=== PATIENT | female | born 1950 | race Caucasian/White ===

== ENCOUNTER 2017-10-08 15:15 | Outpatient (CLI) | payer MEDICARE, OTHER | END 2017-10-08 15:16 | disposition home or self-care (01) | LOC: BICMAMMO 15:15 | PROVIDERS: ATTEND Obstetrics & Gynecology | DX: Z12.31 Encounter for screening mammogram for malignant neoplasm of breast (principal) | CPT/HCPCS: 77063; 77067 ==

== ENCOUNTER 2018-10-21 08:04 | Outpatient (CLI) | payer MEDICARE | END 2018-10-21 08:05 | disposition home or self-care (01) | LOC: BICMAMMO 08:04 | PROVIDERS: ATTEND Obstetrics & Gynecology | DX: Z12.31 Encounter for screening mammogram for malignant neoplasm of breast (principal) | CPT/HCPCS: 77063; 77067 ==

== ENCOUNTER 2019-10-22 09:58 | Outpatient (CLI) | payer MEDICARE ==
--- NOTE | 2019-10-22 12:12 | MMO ---
Bilateral MAMMO Bilat Screen [facility]. CLINICAL HISTORY: Patient is 69 years old and is seen for screening. The patient has no family history of breast cancer. The patient has no personal history of cancer. VIEWS: The views performed were: bilateral craniocaudal with tomosynthesis and bilateral mediolateral oblique with tomosynthesis. FILMS COMPARED: The present examination has been compared to prior imaging studies performed at [facility] on 10/08/2017 and 10/21/2018, and at [facility] on 01/11/2015 and 01/27/2016. This study has been interpreted with the assistance of computer-aided detection. MAMMOGRAM FINDINGS: There are scattered fibroglandular densities. There are no suspicious masses, suspicious calcifications, or new areas of architectural distortion. IMPRESSION: THERE IS NO MAMMOGRAPHIC EVIDENCE OF MALIGNANCY. A ROUTINE FOLLOW-UP MAMMOGRAM IN 1 YEAR IS RECOMMENDED. THE RESULTS OF THIS EXAM WERE SENT TO THE PATIENT. ACR BI-RADS Category 1 - Negative MAMMOGRAPHY NOTE: 1. A negative mammogram report should not delay a biopsy if a dominant of clinically suspicious mass is present. 2. Approximately 10% to 15% of breast cancers are not detected by mammography. 3. Adenosis and dense breasts may obscure an underlying neoplasm. Reported by: VIKAS ALICEA MD Electonically Signed: [id number]
== END 2019-10-22 09:59 | disposition home or self-care (01) ==
LOC: BICMAMMO 09:58
PROVIDERS: ATTEND Obstetrics & Gynecology
DX: Z12.31 Encounter for screening mammogram for malignant neoplasm of breast (principal)
CPT/HCPCS: 77063; 77067

== ENCOUNTER 2022-05-11 08:40 | Outpatient (CLI) | payer MEDICARE | END 2022-05-11 08:41 | disposition home or self-care (01) | LOC: BICMAMMO 08:40 | PROVIDERS: ATTEND Obstetrics & Gynecology | DX: Z13.820 Encounter for screening for osteoporosis (principal); M81.0 Age-related osteoporosis without current pathological fracture | CPT/HCPCS: 77080 ==

== ENCOUNTER 2022-09-19 08:28 | Outpatient (CLI) | payer MEDICARE | END 2022-09-19 08:29 | disposition home or self-care (01) | LOC: RAD 08:28 | PROVIDERS: ATTEND Internal Medicine Critical Care Medicine | DX: R06.00 Dyspnea, unspecified (principal) | CPT/HCPCS: 71046 ==

== ENCOUNTER 2023-09-30 08:36 | Outpatient (CLI) | payer MEDICARE | END 2023-09-30 08:37 | disposition home or self-care (01) | LOC: RAD 08:36 | PROVIDERS: ATTEND Internal Medicine Critical Care Medicine | DX: R06.00 Dyspnea, unspecified (principal) | CPT/HCPCS: 71046 ==

== ENCOUNTER 2024-08-03 13:39 | Outpatient (CLI) | payer MEDICARE ==
[2024-08-03 15:26] LABS: #Basophils 0.03 10x3/uL (0.0-0.2); %Basophils 0.4 % (0.0-1.0); %Eosinophils 1.3 % (0.0-10.0); %Lymphocytes 13.7 % (21.0-51.0); %Monocytes 8.1 % (0.0-10.0); %Neutrophils 76.4 % (42.0-75.0); Hematocrit 41.8 % (36.0-47.0); Mean Corpuscular HGB CONC 33.5 g/dL (32.0-36.0); Mean Corpuscular Hemoglobin 32.2 pg (27.0-31.0); Mean Corpuscular Volume 96.1 fL (78.0-98.0); Mean Platelet Volume 9.8 fL (7.4-10.4); Platelet Count 366 10x3/uL (130-400); RBC Distribution Width 15.6 % (11.5-14.5); Red Blood Cell (RBC) Count 4.35 mill/uL (4.20-5.40)
[2024-08-03 15:44] LABS: Anion Gap 11 mmol/L (10-20); BUN (Urea Nitrogen) 9 mg/dL (9.8-20.1); Calc. Creatinine Clearance 0 mL/min (70-130); Calcium 9.3 mg/dL (7.8-10.44); Carbon Dioxide 28 mmol/L (23-31); Chloride 100 mmol/L (98-107); Estimated GFR 94; Glucose 84 mg/dL (83-110); Potassium 3.8 mmol/L (3.5-5.1); Sodium 135 mmol/L (136-145)
== END 2024-08-03 13:40 | disposition home or self-care (01) ==
LOC: LABBT 13:39
PROVIDERS: ATTEND Orthopaedic Surgery
DX: Z01.818 Encounter for other preprocedural examination (principal); S52.501D Unspecified fracture of the lower end of right radius, subsequent encounter for closed fracture with routine healing
CPT/HCPCS: 80048; 85025; 93005; 93010

== ENCOUNTER 2024-08-06 05:52 | Day surgery (SDC) | payer MEDICARE ==
[2024-08-03 14:14] VITALS: BMI 20.5
[2024-08-06] MEDS ORDERED: EPINEPHrine 1 MG/ML VIAL ONE (06:28)
[2024-08-06] MEDS ORDERED: Midazolam HCl 2 mg/2 ml Vial ONE (06:29)
[2024-08-06] MEDS ORDERED: fentaNYL 50 mcg/mL 1 mL Vial ONE (06:29)
[2024-08-06] MEDS ORDERED: Bupivacaine PF 0.5% 30 ML VIAL ONE (06:29)
[2024-08-06] MEDS ORDERED: Lidocaine 1% (PF) 30 ML VIAL ONE (06:29)
[2024-08-06] MEDS ORDERED: fentaNYL PF 100 MCG/2 ML SYRINGE ONE (06:56)
[2024-08-06] MEDS ORDERED: PROPOFOL 0 ML ONE (06:56)
[2024-08-06] MEDS ORDERED: CEFAZOLIN 2 GM VIAL ONE (07:13)
[2024-08-06] MEDS ORDERED: Bupivacaine 0.25% HCL 30 ML VIAL ONE (07:15)
[2024-08-06] MEDS ORDERED: PROPOFOL 20 ML ONE (07:44)
[2024-08-06] MEDS ORDERED: Dexamethasone 4 mg/ml Vial ONE (07:51)
[2024-08-06] MEDS ORDERED: ePHEDrine Sulfate 50 MG/10 ML VIAL ONE (07:52)
[2024-08-06] MEDS ORDERED: Ondansetron PF 4 MG/2 ML Vial ONE (08:20)
== END 2024-08-06 10:15 | disposition home or self-care (01) ==
LOC: SDC 05:52
PROVIDERS: ATTEND Orthopaedic Surgery
PROC: 0PSH04Z Reposition Right Radius with Internal Fixation Device, Open Approach (ICD-10-PCS; principal; 2024-08-06)
PROC: 3E0T3BZ Introduction of Anesthetic Agent into Peripheral Nerves and Plexi, Percutaneous Approach (ICD-10-PCS; 2024-08-06)
DX: S52.591A Other fractures of lower end of right radius, initial encounter for closed fracture (principal); I10 Essential (primary) hypertension; J44.9 Chronic obstructive pulmonary disease, unspecified; F17.200 Nicotine dependence, unspecified, uncomplicated; Z79.01 Long term (current) use of anticoagulants; Z79.899 Other long term (current) drug therapy; W19.XXXA Unspecified fall, initial encounter
CPT/HCPCS: 25608; 64417; 73110; J0171; J0665 ×2; J1100; J2250; J2405; J2704; J3010; C1713